=== PATIENT | female | born 1985 | race African-American/Black ===

== ENCOUNTER 2020-01-11 15:37 | Inpatient (IN) | payer MEDICAID, SELFPAY ==
[~2020-01-11] VITALS: Ht 160 cm; Wt 90.7 kg
[2020-01-11 15:37] VITALS: BP 134/83
--- NOTE | 2020-01-11 15:37 | NUR ---
BIBA TAKEN TO BED 4
--- NOTE | 2020-01-11 15:37 | NUR ---
34 y/o f c/c sob x1 day. pt biba from home. pt d/c from [facility] on the due to child labor, child at 39 weeks. pt presents in respiratory distress, placed in full fowlers, oxygen 2NC for comfort, pt at room air 98%. lung sounds clear. edema noted pitting +2 bilateral, per pt edema present after childbirth. no asymetrical swollen, pain, tender noted on bilateral extremities. cms/rom wdl. pt nka. hx htn,cardiomyopathy,heart failure,anemia. rx iron. no n/v/d.
--- NOTE | 2020-01-11 15:59 | NUR ---
lab at bedside
--- NOTE | 2020-01-11 15:59 | NUR ---
xray at bedside
[2020-01-11 16:23] LABS: BASOPHILS % (AUTO) 0.4 % (0.0-2.0); EOSINOPHILS # (AUTO) 0.1 K/uL (0-0.4); EOSINOPHILS % (AUTO) 2.7 % (0.0-4.0); HEMATOCRIT 27.5 % (36-48); LYMPHOCYTES # (AUTO) 1.8 K/uL (2.5-16.5); LYMPHOCYTES % (AUTO) 35.5 % (20.5-51.1); MEAN CORPUSCULAR HEMOGLOBIN 28 pg (27-31); MEAN CORPUSCULAR HGB CONC 33 g/dL (33-37); MEAN CORPUSCULAR VOLUME 86.8 fL (80-94); MONOCYTES # (AUTO) 0.4 K/uL (0.8-1.0); MONOCYTES % (AUTO) 8.6 % (1.7-9.3); NEUTROPHILS # (AUTO) 2.7 K/uL (1.8-7.7); NEUTROPHILS % (AUTO) 52.8 % (42.2-75.2); PLATELET COUNT (AUTO) 288 K/uL (140-450); RED BLOOD CELL COUNT(AUTO) 3.17 MIL/uL (4.20-5.40); RED CELL DISTRIBUTION WIDTH 18.7 % (11.6-13.7); WHITE BLOOD COUNT (AUTO) 5.1 K/uL (4.8-10.8)
[2020-01-11 16:40] LABS: ANION GAP 14.7 (8-16); CARBON DIOXIDE 23.8 mmol/L (21-32); CREATININE 0.9 mg/dL (0.6-1.3); POTASSIUM 3.5 mmol/L (3.5-5.1)
[2020-01-11 16:46] LABS: ALBUMIN 2.7 g/dL (3.4-5.0); TOTAL BILIRUBIN 0.3 mg/dL (0.0-1.0)
[2020-01-11 17:03] LABS: APPEARANCE,URINE CLOUDY (CLEAR); BILIRUBIN,URINE NEGATIVE (NEGATIVE); BLOOD, URINE 3+ (NEGATIVE); COLOR,URINE RED (YELLOW); LEUKOCYTE ESTERASE ,URINE 1+ (NEGATIVE); NITRITE, URINE NEGATIVE (NEGATIVE); UGLUCOSE NEGATIVE (NEGATIVE)
--- NOTE | 2020-01-11 17:04 | NUR ---
PATIENT RESTING IN BED WITH EYES CLOSED. RESP EVEN AND UNLABORED. VSS. ALL NEEDS MET AT THIS TIME
[2020-01-11 17:17] LABS: RBC,URINE >100 /HPF (0-5)
[2020-01-11] MEDS ORDERED: FERR325E14 PO (17:30)
[2020-01-11] MEDS ORDERED: NACL 0.9% 1,000 ML IV SCH (17:42)
[2020-01-11] MEDS ORDERED: HYDROcodone/APAP 5/325 MG 1 TAB TAB PO PRN (17:45)
[2020-01-11] MEDS ORDERED: MORPHINE SULFATE 2 MG/ML SYR IVP PRN (17:45)
[2020-01-11] MEDS ORDERED: DOCUSATE SODIUM 100 MG GELCAP PO PRN (17:45)
[2020-01-11] MEDS ORDERED: ONDANSETRON 4 MG/2 ML VIAL IM/IVP PRN (17:45)
[2020-01-11] MEDS ORDERED: ACETAMINOPHEN 325 MG TAB PO PRN (17:45)
[2020-01-11] MEDS ORDERED: LORazepam 2 MG/ML VIAL IVP STA (18:11)
[2020-01-11] MEDS ORDERED: LORazepam 2 MG/ML VIAL ONE (18:13)
--- NOTE | 2020-01-11 18:15 | NUR ---
PT BEGAN FEELING SOB/ANXIOUS IN CT SCAN AND WAS UNABLE TO LAY FLAT ON BACK. [facility] NOTIFIED. 1MG LORAZEPAM ORDERED AND GIVEN AT CT
[2020-01-11] MEDS ORDERED: AZITHROMYCIN 500 MG in DEXTROSE 5% 250 ML IV ONE (18:35)
[2020-01-11 18:38] LABS: BARBITURATE, URINE NEGATIVE ng/ml (NEG <=200); BENZODIAZEPINE, URINE NEGATIVE ng/mL (NEG <=200); CANNABINOID, URINE NEGATIVE ng/mL (NEG <=50); COCAINE, URINE NEGATIVE ng/mL (NEG <=300); OPIATE, URINE NEGATIVE ng/mL (NEG <=2000); PHENCYCLIDINE SCREEN,URINE NEGATIVE ng/mL (NEG <=25)
[2020-01-11 18:54] LABS: MAGNESIUM 1.7 mg/dL (1.8-2.4); PHOSPHORUS 3.9 mg/dL (2.5-4.9); THYROID STIMULATING HORMONE 1.66 uIU/mL (0.34-3.74)
--- NOTE | 2020-01-11 19:30 | NUR ---
RECEIVED BEDSIDE REPORT FROM ER NURSE. PT CAME IN [facility] AND ABLE TO AMBULATE TO [facility] BED. PT 4DAYS . NO SOB NOTED AT THIS TIME. BREATHING EVEN AND UNLABORED. IV SITED ON LAC 20G, PATENT, INTACT, AND ASYMPTOMATIC. SKIN INTACT, WARM AND DRY TO TOUCH. MRSA SWAB DONE, VS CHECKED, WITHIN PT'S BASELINE. ORIENTED ROOM TO PT. PT REQUEST BREAST PUMP. BED IN LOW POSITION, CALL LIGHT WITHIN REACH.
[2020-01-11] MEDS ORDERED: ALBUTEROL SULFATE/IPRATROPIU 3 ML SOL IH PRN (19:35)
[2020-01-11] MEDS ORDERED: MAG SULF 2000 MG/WATER PREMIX 50 ML IV ONE (19:40)
[2020-01-11] MEDS ORDERED: ALBUTEROL HFA MDI 90 MCG/ACTUATION 8 GM INH PRN (19:45)
[2020-01-11] MEDS ORDERED: FUROSEMIDE 40 MG/4 ML VIAL IVP ONE (19:45)
[2020-01-11 20:00] VITALS: BP 133/80
[2020-01-11] MEDS ORDERED: cefTRIAXone 1,000 MG VIAL ONE (20:06)
--- NOTE | 2020-01-11 20:06 | NUR ---
Patient will be admitted to care of [facility]. Admited to TELE. Will go to room 125B. Belongings list completed. Report to FEBRUARY
[2020-01-11 20:52] LABS: PROTHROMBIN TIME 9.9 secs (10.8-13.4)
--- NOTE | 2020-01-11 20:59 | NUR ---
GIVEN MAG FALL AND RAKESH MD ORDERED. PT TOLERATED WELL.
--- NOTE | 2020-01-11 21:12 | NUR ---
2024 PATIENT GIVEN 2 PUFFS ALBUTEROL INHALER VIA AEROCHAMBER. NO SOB NOTED. ABG DRAWN AND PLACED IN Superhuman. NO 02 NEEDED AT THIS TIME
--- NOTE | 2020-01-11 21:30 | NUR ---
COLLECTED SPECIMEN FOR COVID19 AND SENT TO THE LAB.
--- NOTE | 2020-01-11 22:00 | NUR ---
PICKED UP BREAST PUMP FROM L/D DEPT. PROVIDED TO PT.
--- NOTE | 2020-01-11 22:42 | NUR ---
GIVEN ROCEPHIN MD ORDERED. PT TOLERATED WELL.
[2020-01-11] MEDS ORDERED: AZITHROMYCIN 500 MG INJ VIAL IV ONE (23:08)
--- NOTE | 2020-01-11 23:22 | NUR ---
GIVEN ZITHROMAX MD ORDERED. PT TOLERATED WELL.
[2020-01-12] VITALS: BP 136/83
--- NOTE | 2020-01-12 | NUR ---
PT C/O BURNING PAIN ON IV SITE, CAN'T TOLERATE ZITHROMAX IV. REPORTED DR. NEVAREZ AND STOPPED IT AND REPLACED TO PO ZITHROMAX.
[2020-01-12] MEDS ORDERED: AZITHROMYCIN 250 MG TAB PO ONE (00:15)
--- NOTE | 2020-01-12 00:26 | NUR ---
GIVEN ZITHROMAX PO MD ORDERED. PT TOLERATED WELL.
--- NOTE | 2020-01-12 02:38 | NUR ---
PT SLEEPING IN BED COMFORTABLY. NO ACUTE DISTRESS NOTED.
[2020-01-12 04:00] VITALS: BP 137/82
--- NOTE | 2020-01-12 04:19 | NUR ---
PT C/O HEADACHE. GIVEN TYLENOL MD ORDERED. PT TOLERATED WELL.
--- NOTE | 2020-01-12 06:02 | NUR ---
RECEIVED PATIENT'S SIGNATURE FOR AUTHORIZATION OF HEALTH INFORMATION, AND SENT FAX TO [facility] MEDICAL RECOR[facility] OFFICE AT [phone].
--- NOTE | 2020-01-12 06:57 | NUR ---
PT IN STABLE CONDITION. WILL ENDORSE TO DAY SHIFT NURSE FOR CONTINUOUS CARE.
--- NOTE | 2020-01-12 07:20 | NUR ---
RECEIVED PT FROM TUBE SIZER OPERATOR NURSE, PT IS AWAKE AND SEATED ON THE BED, WITH IV LINE ON THE LEFT AC G. 20 WITH NS INFUSING AT 60ML/HR, PT DENIES PAIN AND ON ROOM AIR, BREAST MILK IS BEING PUMPED, WILL CONTINUE TO MONITOR PT.
[2020-01-12 07:25] LABS: T4 (THYROXINE) 10.6 ug/dL (4.5-12.0)
[2020-01-12 07:39] LABS: BASOPHILS % (AUTO) 0.6 % (0.0-2.0); EOSINOPHILS # (AUTO) 0.1 K/uL (0-0.4); EOSINOPHILS % (AUTO) 2.7 % (0.0-4.0); HEMATOCRIT 29.4 % (36-48); HEMOGLOBIN 9.5 g/dL (12.0-16.0); LYMPHOCYTES # (AUTO) 1.4 K/uL (2.5-16.5); LYMPHOCYTES % (AUTO) 27.1 % (20.5-51.1); MEAN CORPUSCULAR HEMOGLOBIN 28 pg (27-31); MEAN CORPUSCULAR HGB CONC 33 g/dL (33-37); MEAN CORPUSCULAR VOLUME 86.8 fL (80-94); MONOCYTES # (AUTO) 0.5 K/uL (0.8-1.0); MONOCYTES % (AUTO) 9.6 % (1.7-9.3); NEUTROPHILS # (AUTO) 3.1 K/uL (1.8-7.7); PLATELET COUNT (AUTO) 330 K/uL (140-450); RED BLOOD CELL COUNT(AUTO) 3.39 MIL/uL (4.20-5.40); RED CELL DISTRIBUTION WIDTH 18.3 % (11.6-13.7); WHITE BLOOD COUNT (AUTO) 5.2 K/uL (4.8-10.8)
[2020-01-12 08:00] VITALS: BP 132/63
[2020-01-12 08:02] LABS: ANION GAP 16.1 (8-16); CARBON DIOXIDE 23.3 mmol/L (21-32); CREATININE 0.9 mg/dL (0.6-1.3); POTASSIUM 3.4 mmol/L (3.5-5.1)
[2020-01-12 08:35] LABS: CHOL/HDL RATIO 4.1 (1-4.5)
[2020-01-12] MEDS: ENOXAPARIN 40 MG/0.4 ML SYR SUBQ SCH (08:42)
[2020-01-12] MEDS: FERROUS SULFATE 325 MG TABEC PO SCH ×3 (08:42→18:15)
[2020-01-12] MEDS: ASCORBIC ACID 500 MG TAB PO SCH (08:42)
--- NOTE | 2020-01-12 08:42 | NUR ---
PT WAS GIVEN THE SCHEDULED AM MEDICATIONS, NO SIGN OF DISTRESS NOTED AND WILL MONITOR PT.
[2020-01-12] MEDS: AZITHROMYCIN 250 MG TAB PO SCH (08:43)
[2020-01-12] MEDS: ZINC SULF 220 MG CAP PO SCH (08:45)
[2020-01-12] MEDS ORDERED: FUROSEMIDE 20 MG/2 ML VIAL IVP SCH (10:30)
[2020-01-12] MEDS ORDERED: POTASSIUM CHLORIDE 10 MEQ TABER PO SCH (11:15)
--- NOTE | 2020-01-12 11:43 | NUR ---
PT IS AWAKE AND SEATED ON THE BED, SCHEDULED MEDICATIONS WERE GIVEN, V/S ARE STABLE, NO SIGN OF DISTRESS NOTED AND WILL MONITOR PT.
[2020-01-12 12:00] VITALS: BP 134/85
[2020-01-12 16:00] VITALS: BP 136/85
[2020-01-12] MEDS ORDERED: FUROSEMIDE 40 MG/4 ML VIAL IVP ONE (17:28)
[2020-01-12] MEDS ORDERED: POTASSIUM CHLORIDE 10 MEQ TABER PO ONE (17:28)
--- NOTE | 2020-01-12 18:00 | NUR ---
PT'S IV LINE WAS INFILTRATED NOW, TRIED TO RE-INSERT ANOTHER IV LINE BUT WAS UNSUCCESSFUL, PT DOES NOT WAN ANOTHER IV INSERTION NOW, WILL ENDORSE TO CLINICAL SUPPORT ASSOCIATE NURSE, IVPB MEDIATION WAS NOT GIVEN, INFORMED.
--- NOTE | 2020-01-12 18:15 | NUR ---
PT'S ORAL MEDICATIONS WERE GIVEN NOW.
--- NOTE | 2020-01-12 19:15 | NUR ---
ENDORSED PT TO ACCOUNTS RECEIVABLE SUPERVISOR NURSE FOR CONTINUITY OF CARE.
--- NOTE | 2020-01-12 19:16 | NUR ---
RECEIVED BEDSIDE REPORT FROM AM SHIFT NURSE. PATIENT IS SITTING ON BED, AWAKE AND ALERT. NO SOB OR DISTRESS NOTED, ON ROOM AIR. RESPIRATIONS EVEN AND UNLABORED. SKIN IS INTACT. PATIENT IS AMBULATORY. BED IN LOW, BED LOCKED. SAFETY MEASURES IN PLACE. CALL LIGHT PLACED WITHIN PATIENT REACH. WILL CONTINUE TO MONITOR PATIENT.
[2020-01-12 20:00] VITALS: BP 153/93
--- NOTE | 2020-01-12 20:09 | NUR ---
RECEIVED REPORT FROM AM SHIFT. PATIENT SEEN AND ASSESSED. FOUND PATIENT ON ROOM AIR WITH SPO2 OF 98%. PATIENT IS IN NO APPARENT RESPIRATORY DISTRESS AT THIS TIME. PRN TX NOT INDICATED AT THIS MOMENT. WILL CONTINUE TO MONITOR.
--- NOTE | 2020-01-12 21:00 | NUR ---
PATIENT WANTS TO SPEAK WITH CHARGE NURSE AND MD REGARDING HER CARE.
[2020-01-12] MEDS ORDERED: AZIT250T3 PO (21:06)
[2020-01-12] MEDS ORDERED: AMOX-999 PO (21:25)
--- NOTE | 2020-01-12 21:30 | NUR ---
PATIENT DEBATED ABOUT GOING AMA, BUT WAS CONVINCED OTHERWISE TO STAY. NO DISTRESS NOTED.
[2020-01-13] VITALS: BP 136/85
--- NOTE | 2020-01-13 | NUR ---
VITALS DONE AT THIS TIME. VISIBLE CHEST RISE AND FALL NOTED. WILL CONTINUE TO MONITOR PATIENT.
--- NOTE | 2020-01-13 04:05 | NUR ---
VITALS DONE. PATIENT RESTING COMFORTABLY. NO DISTRESS NOTED. WILL CONTINUE TO MONITOR PATIENT.
[2020-01-13 04:25] VITALS: BP 140/93
--- NOTE | 2020-01-13 07:03 | NUR ---
PATIENT IN STABLE CONDITION. NO DISTRESS NOTED. WILL ENDORSE TO AM SHIFT NURSE FOR CONTINUITY OF CARE.
--- NOTE | 2020-01-13 07:20 | NUR ---
RECEIVED PT FROM SURGICAL TECHNOLOGIST NURSE, FANNIE, PT IS AWAKE AND SEATED ON THE BED WITH IV LINE ON THE RT AC G22 ON SALINE LOCK, INTACT, ON ROOM AIR, ON TELE MONITORING, NO SIGN OF DISTRESS NOTED AND WILL MONITOR PT.
--- NOTE | 2020-01-13 07:27 | NUR ---
PATIENT HAS BEEN SCREENED AND CATEGORIZED MODERATE NUTRITION RISK. PATIENT WILL BE SEEN WITHIN 3-5 DAYS OF ADMISSION. 01/14/20 01/16/[address]
[2020-01-13 08:00] VITALS: BP 133/79
[2020-01-13 08:46] LABS: BASOPHILS % (AUTO) 0.6 % (0.0-2.0); EOSINOPHILS # (AUTO) 0.1 K/uL (0-0.4); EOSINOPHILS % (AUTO) 2.6 % (0.0-4.0); HEMATOCRIT 31.4 % (36-48); HEMOGLOBIN 10.2 g/dL (12.0-16.0); LYMPHOCYTES # (AUTO) 1.6 K/uL (2.5-16.5); MEAN CORPUSCULAR HEMOGLOBIN 28 pg (27-31); MEAN CORPUSCULAR HGB CONC 33 g/dL (33-37); MONOCYTES # (AUTO) 0.4 K/uL (0.8-1.0); MONOCYTES % (AUTO) 8.7 % (1.7-9.3); NEUTROPHILS # (AUTO) 2.6 K/uL (1.8-7.7); NEUTROPHILS % (AUTO) 55.1 % (42.2-75.2); PLATELET COUNT (AUTO) 331 K/uL (140-450); RED CELL DISTRIBUTION WIDTH 18.5 % (11.6-13.7); WHITE BLOOD COUNT (AUTO) 4.8 K/uL (4.8-10.8)
[2020-01-13 08:54] LABS: ALBUMIN 2.8 g/dL (3.4-5.0); ANION GAP 18.1 (8-16); CREATININE 0.7 mg/dL (0.6-1.3); MAGNESIUM 2.1 mg/dL (1.8-2.4); PHOSPHORUS 4.6 mg/dL (2.5-4.9); POTASSIUM 4.1 mmol/L (3.5-5.1); TOTAL BILIRUBIN 0.4 mg/dL (0.0-1.0)
[2020-01-13] MEDS: ZINC SULF 220 MG CAP PO SCH (08:58)
[2020-01-13] MEDS: FERROUS SULFATE 325 MG TABEC PO SCH ×3 (08:58→18:01)
[2020-01-13] MEDS: ASCORBIC ACID 500 MG TAB PO SCH (08:59)
[2020-01-13] MEDS: FUROSEMIDE 40 MG/4 ML VIAL IVP SCH ×2 (09:00→18:00)
[2020-01-13] MEDS ORDERED: POTASSIUM CHLORIDE 10 MEQ TABER PO SCH (09:00)
[2020-01-13] MEDS: ENOXAPARIN 40 MG/0.4 ML SYR SUBQ SCH (09:02)
[2020-01-13] MEDS: AZITHROMYCIN 250 MG TAB PO SCH (09:03)
[2020-01-13 09:08] LABS: FOLIC ACID 11.9 ng/mL (>3.0)
--- NOTE | 2020-01-13 09:09 | NUR ---
PT IS AWAKE AND AM SCHEDULED MEDICATIONS WERE GIVEN TO PT ORALLY AND IV PUSH, K DUR 40MEQ WAS GIVEN TO PT FOR K LEVEL OF 4.[address] ABRAMS BECAUSE PT IS TAKING LASIX BID.
[2020-01-13 12:00] VITALS: BP 135/80
--- NOTE | 2020-01-13 12:27 | NUR ---
PT WAS GIVEN THE SCHEDULED FERROUS SULFATE ORAL TABLETS NOW, V/S TAKEN AND IS STABLE.
--- NOTE | 2020-01-13 13:50 | NUR ---
PT IS RESTING RIGHT NOW, DENIES PAIN.
[2020-01-13 16:00] VITALS: BP 144/98
--- NOTE | 2020-01-13 18:02 | NUR ---
PT WAS GIVEN ORAL , IV PUSH AND IVPB MEDICATIONS NOW, PARAMETER CHECKED AND WILL MONITOR PT.
--- NOTE | 2020-01-13 19:10 | NUR ---
ENDORSED PT TO NIGHTSHIFT NURSE FOR CONTINUITY OF CARE.
--- NOTE | 2020-01-13 19:40 | NUR ---
RECEIVED REPORT AT BEDSIDE.PT IS IN THE BED.RESP.UNLABORED.TELE IS ON AND SHOWING SR.SL PATENT.NO C/O PAIN AT THIS TIME.PT ASKED TO SEE PT AND WANTED TO D/C.INFORM RESIDENT .
--- NOTE | 2020-01-13 22:30 | NUR ---
PT WAS NOT COOPERATIVE .AND HAD VERY BAD ATTITUDE AND WANTED O GO HOME AND WANTED TO GIVE HER MEDICAL RECORD.I EXPLAINED FOR HER THAT RESIDENT IS BUSY IN ER AND ALSO TOLD HER THAT WE CAN NOT GIVE HER MEDICAL RECORD NOW AND SHE NEEDS TO COME TO MEDICAL RECORD DEPARTMENT IN AM AND REQUESTED THAT.ANY WAY SHE SIGNED AMA AND LEFT HOSPITAL AT 2215 IN STABLE CONDITION.
== END 2020-01-13 22:15 | disposition left against medical advice (07) | DRG 561 ==
LOC: MED 15:37 → MMU 17:42 → EEVIPCON 17:42
PROVIDERS: ADMIT General Practice; ATTEND General Practice
DX: O99.53 Diseases of the respiratory system complicating the puerperium (principal); J96.01 Acute respiratory failure with hypoxia; E43 Unspecified severe protein-calorie malnutrition; I50.43 Acute on chronic combined systolic (congestive) and diastolic (congestive) heart failure; J18.9 Pneumonia, unspecified organism; I11.0 Hypertensive heart disease with heart failure; O90.3 Peripartum cardiomyopathy; O99.285 Endocrine, nutritional and metabolic diseases complicating the puerperium; E83.42 Hypomagnesemia; B96.20 Unspecified Escherichia coli [E. coli] as the cause of diseases classified elsewhere; E87.6 Hypokalemia; O90.81 Anemia of the puerperium; D64.9 Anemia, unspecified; O99.215 Obesity complicating the puerperium; E66.9 Obesity, unspecified; O16.5 Unspecified maternal hypertension, complicating the puerperium; O86.20 Urinary tract infection following delivery, unspecified; O25.3 Malnutrition in the puerperium; Z03.818 Encounter for observation for suspected exposure to other biological agents ruled out; Z53.29 Procedure and treatment not carried out because of patient's decision for other reasons; O72.1 Other immediate postpartum hemorrhage; J98.11 Atelectasis
CPT/HCPCS: 36415; 36600; 71045; 71275; 80048; 80053; 80305; 81001; 82550; 82553; 82607; 82728; 82746; 82803; 83036; 83540; 83605; 83615; 83735; 83880; 84100; 84134; 84436; 84443; 84484; 85025; 85045; 85379; 85610; 85651; 85730; 86140; 87081; 87086; 87186; 93970; 94664; 96374; 99285; J0456; J0696; J1650; J1940; J2060; J3475; J7030; J7060; Q0092; Q9967